=== PATIENT | male | born 1995 | race African-American/Black ===

== ENCOUNTER 2023-12-25 21:28 | Emergency (ER) | payer OTHER ==
[~2023-12-25] VITALS: Ht 175.3 cm; Wt 100.0 kg
[2023-12-25 21:34] VITALS: BP 134/80; PULSE 98; RESP 18; TEMP 97.7; O2SAT 98
[2023-12-25] MEDS: LIDOCAINE HCL/PF 1% 10 MG/ML 5ML VIAL INFIL ONE (22:45)
[2023-12-25] MEDS: BACITRACIN ZINC OINT UDPKT TOP ONE (22:45)
[2023-12-25] MEDS ORDERED: TETANUS, DIPHTHERIA, PERTUSSIS VAC/PF 0.5ML (>10YR OLD) IM ONE (22:45)
== END 2023-12-26 01:07 | disposition home or self-care (01) ==
LOC: ER 21:28
DX: S01.21XA Laceration without foreign body of nose, initial encounter (principal); X58.XXXA Exposure to other specified factors, initial encounter; Y93.89 Activity, other specified; Y92.89 Other specified places as the place of occurrence of the external cause; Y99.8 Other external cause status
CPT/HCPCS: 99283; 70260; 12011; J3490

== ENCOUNTER 2024-01-06 07:22 | Emergency (ER) | payer OTHER ==
[~2024-01-06] VITALS: Ht 177.8 cm; Wt 91.0 kg
[2024-01-06 07:25] VITALS: BP 129/72; TEMP 98.6; O2SAT 99
[2024-01-06 07:28] VITALS: PULSE 77; RESP 16
== END 2024-01-06 08:36 | disposition home or self-care (01) ==
LOC: ER 07:22
DX: S01.21XD Laceration without foreign body of nose, subsequent encounter (principal); X58.XXXD Exposure to other specified factors, subsequent encounter
CPT/HCPCS: 99281